=== PATIENT | male | born 1930 ===

== ENCOUNTER → 2017-06-01 | Outpatient (CLI) | payer MEDICARE, OTHER ==
[2017-06-01 12:23] LABS: BASOPHIL % 0.1 %; EOSINOPHIL # 0.5 K/uL (0.0-0.5); EOSINOPHIL % 7.1 %; HEMATOCRIT 30.6 % (33.0-50.0); IMMATURE GRANULOCYTE % 0.3 %; LYMPHOCYTE # 1.6 K/uL (0.8-4.0); MCH 32.6 pg (27.0-34.0); MCHC 32.7 gm/dL (32.0-36.5); MCV 99.7 fl (83.0-98.0); MONOCYTE # 0.6 K/uL (0.0-1.0); MONOCYTE % 8.6 %; MPV 10.7 fl (9.4-12.4); NEUTROPHIL # (ANC) 4.7 K/uL (1.4-9.0); NEUTROPHIL % 62.9 %; NRBC % 0 /100WBC (0-0.00); PLATELET COUNT 128 K/uL (150-450); RBC 3.07 M/uL (3.50-5.50); RDW-CV 14.2 % (11.9-14.6); WBC 7.5 K/uL (4.0-11.0)
[2017-06-01 12:32] LABS: ANION GAP 11.3 (10.0-19.0); CALCIUM 8.3 mg/dL (8.5-10.5); CREATININE 2.4 mg/dL (0.6-1.3); POTASSIUM 4.3 mMol/L (3.7-5.1)
== END ==
LOC: LGSRV 12:06
PROVIDERS: Family Medicine
DX: N18.4 Chronic kidney disease, stage 4 (severe) (principal); D50.9 Iron deficiency anemia, unspecified; E11.9 Type 2 diabetes mellitus without complications